=== PATIENT | male | born 1945 | race Caucasian/White ===

== ENCOUNTER 2017-09-05 14:51 | Inpatient (IN) | payer OTHER ==
[~2017-09-05] VITALS: Ht 172.7 cm; Wt 74.0 kg
[2017-09-05 15:04] VITALS: BP 151/88
[2017-09-05] MEDS ORDERED: IPRAT-ALBUT 0.5-3 ML INH (15:20)
[2017-09-05] MEDS ORDERED: ASPIR 8181 MG PO (15:20)
[2017-09-05] MEDS ORDERED: LIPITOR80 MG PO (15:21)
[2017-09-05] MEDS ORDERED: CARVEDILOL12.5 MG PO (15:22)
[2017-09-05] MEDS ORDERED: DM-GUAIF-PE 18240 ML PO (15:23)
[2017-09-05] MEDS ORDERED: LASIX 20 MG TAB20 MG PO (15:24)
[2017-09-05] MEDS ORDERED: FISH OIL 1,001000 M2 PO (15:24)
[2017-09-05 15:26] LABS: ABSOLUTE BASOPHILS 0.1 thou/uL (0.0-0.2); ABSOLUTE EOSINOPHILS 0.3 thou/uL (0.0-0.7); ABSOLUTE LYMPHOCYTES 1.3 thou/uL (0.8-5.3); ABSOLUTE MONOCYTES 0.8 thou/uL (0.0-1.2); ABSOLUTE NEUTROPHILS 5.8 thou/uL (1.6-8.1); BASOPHILS 1.2 %; EOSINOPHILS 3.4 %; HEMATOCRIT 46.2 % (42.0-52.0); HEMOGLOBIN 15.1 gm/dL (14.0-18.0); LYMPHOCYTES 15.7 %; MCH 29.3 pg (26.0-34.0); MCHC 32.7 g/dL (28.0-37.0); MCV 89.6 fL (80.0-100.0); MPV 7.7 fl. (7.2-11.1); NUCLEATED RBCS 0 /100WBC; PLATELET COUNT* 271 thou/uL (150-400); POLYS 69.7 %; RBC 5.16 mil/uL (4.50-6.00); RDW-CV 15.9 % (10.5-14.5); WBC 8.3 thou/uL (4.0-11.0)
[2017-09-05] MEDS ORDERED: NEURONTIN 300300 M1 PO (15:26)
[2017-09-05] MEDS ORDERED: HYDROCODONE-AP1 EAC6 PO (15:29)
[2017-09-05] MEDS ORDERED: LISINOPRIL20 MG PO (15:30)
[2017-09-05 15:31] LABS: ANION GAP 7 mmol/L (7-16); BUN 19 mg/dL (7-18); CALCIUM 8.5 mg/dL (8.5-10.1); CHLORIDE 104 mmol/L (98-107); CO2 30 mmol/L (21-32); CREATININE 0.8 mg/dL (0.6-1.3); GLUCOSE 89 mg/dL (70-99); POTASSIUM 4.3 mmol/L (3.5-5.1); SODIUM 141 mmol/L (136-145)
[2017-09-05] MEDS ORDERED: METFORMIN HCL500 MG PO (15:31)
[2017-09-05 15:32] LABS: PROTIME 9.6 Seconds (9.20-11.50)
[2017-09-05] MEDS ORDERED: REMERON15 MG PO (15:32)
[2017-09-05] MEDS ORDERED: OMEPRAZOLE 20 M20 M1 PO (15:32)
[2017-09-05] MEDS ORDERED: MINIPRESS2 MG PO (15:33)
[2017-09-05] MEDS ORDERED: PREDNISONE 20 M20 MG PO (15:34)
[2017-09-05] MEDS ORDERED: REQUIP 1 MG TABL1 M1 PO ×2 (15:35→19:29)
[2017-09-05] MEDS ORDERED: ZANAFLEX4 MG PO (15:36)
[2017-09-05] MEDS ORDERED: TOPAMAX 100 MG100 MG PO (15:38)
[2017-09-05] MEDS ORDERED: EFFEXOR XR75 MG PO (15:39)
[2017-09-05] MEDS ORDERED: PHENERGAN 25 MG25 M1 PO (15:40)
[2017-09-05] MEDS ORDERED: VITAMIN B-1100 M1 PO (15:41)
[2017-09-05 15:43] LABS: ALBUMIN 3.6 g/dL (3.4-5.0); ALKALINE PHOSPHATASE 97 U/L (46-116); NT-PRO BRAIN NAT PEPTIDE 1486 pg/mL (<300); SGOT 15 U/L (15-37); SGPT 16 U/L (30-65); TOTAL BILIRUBIN 0.3 mg/dL (<0.1-1.0); TOTAL PROTEIN 7.2 g/dL (6.4-8.2); TROPONIN-I LEVEL <0.06 ng/mL (<0.06)
[2017-09-05 15:59] LABS: ACETAMINOPHEN < 2 ug/mL (10-30); ALCOHOL < 10 mg/dL (<10); SALICYLATE 3.8 mg/dL (2.8-20.0)
[2017-09-05 16:25] LABS: URINE BILIRUBIN NEGATIVE (Negative); URINE BLOOD NEGATIVE (Negative); URINE CLARITY CLEAR; URINE COLOR YELLOW; URINE GLUCOSE-RANDOM NEGATIVE (Negative); URINE KETONES TRACE (Negative); URINE LEUKOCYTES-REFLEX NEGATIVE (Negative); URINE NITRITE-REFLEX NEGATIVE (Negative); URINE PROTEIN 1+ (Negative)
[2017-09-05 18:00] VITALS: BP 136/74
[2017-09-05 18:17] LABS: CALCIUM 8.2 mg/dL (8.5-10.1); PHOSPHORUS* 3.6 mg/dL (2.5-4.9)
[2017-09-05 18:18] VITALS: BP 140/96
[2017-09-05] MEDS ORDERED: AUGMENTIN 875-1 EACH PO (19:23)
[2017-09-05] MEDS ORDERED: TRIAD TOP (19:24)
[2017-09-05] MEDS ORDERED: MULTIVITAMINS1 EAC5 PO (19:26)
[2017-09-05] MEDS ORDERED: NARCAN4 MG NASAL (19:27)
[2017-09-05] MEDS ORDERED: FLUORIDEX112 GM PO (19:28)
[2017-09-05] MEDS ORDERED: COMBIVENT INH (19:31)
[2017-09-05 19:39] LABS: AMP/METHAMP Negative (Negative); BARBITURATES Negative (Negative); BENZODIAZEPINES Negative (Negative); COCAINE Negative (Negative); METHADONE Negative (Negative); OPIATES Negative (Negative); PCP Negative (Negative); THC Negative (Negative)
[2017-09-06] VITALS: BP 138/72
[2017-09-06 04:00] VITALS: BP 120/67
[2017-09-06 07:48] VITALS: BP 138/89
[2017-09-06 11:30] VITALS: BP 113/65
--- NOTE | 2017-09-06 14:31 | EKG ---
[place] [address] ELECTROCARDIOGRAM REPORT Name: KELSI FLORES Room: [address] [place] .R.#: [id number] Admission: 09/05/17 Attend Phys: Kel Burleson, Discharge: Date of : 45 Report #: [id number] THIS REPORT FOR: //name// [facility] ED Test Date: 2017-09-05 Test Time: 16:07:30 Pat Name: KELSI FLORES Department: Room: Gender: Social Science Teacher: Eloisa ARRIAGA : 1945 Requested By: Larry Zarate Order Number: [id number] MD: Pantera Li Measurements Intervals [place] Rate: 81 P: -84 DC: 153 QRS: -55 QRSD: 104 T: 67 QT: 415 QTc: 482 Interpretive Statements Ectopic atrial rhythm entricular premature complexes Incomplete RBBB and LAFB Abnormal R-wave progression, late transition Borderline prolonged QT interval No previous ECG available for comparison Electronically Signed On 09-06-2017 14:30:47 CDT by Pantera Li [email or web address] <ELECTRONICALLY SIGNED> By: Pantera Li MD, FACC 09/06/17 1430 [id number] [id number] Pantera Li MD, [facility] /EPI
[2017-09-06 16:00] VITALS: BP 110/70
[2017-09-07] VITALS: BP 114/66
[2017-09-07 04:00] VITALS: BP 110/62
[2017-09-07 05:24] LABS: CALCIUM 7.9 mg/dL (8.5-10.1); CREATININE 0.8 mg/dL (0.6-1.3); MAGNESIUM 1.7 mg/dL (1.8-2.4); PHOSPHORUS* 3.5 mg/dL (2.5-4.9); POTASSIUM 3.8 mmol/L (3.5-5.1)
[2017-09-07 08:00] VITALS: BP 107/62
[2017-09-07 12:27] VITALS: BP 102/60
[2017-09-07] MEDS ORDERED: PREDNISONE 10 M10 MG PO (13:08)
[2017-09-07] MEDS ORDERED: PRENATAL COMPL1 EACH PO (13:21)
[2017-09-07 13:28] VITALS: BP 102/60
--- NOTE | 2017-09-07 14:16 | 2DMMODE ---
[place] [address] 2 D/M-MODE ECHOCARDIOGRAM Name: KELSI FLORES Room: [address] IN [facility]#: [id number] Admission: 09/05/17 Attend Phys: Kel Dyer Discharge: Date of : 45 Date of Service: 09/07/17 1415 Report #: [id number] THIS REPORT FOR: //name// APPROVED REPORT Study performed: 09/07/2017 13:32:19 EXAM: Comprehensive 2D, Doppler, and color-flow Echocardiogram Patient Location: In-Patient Room #: 204 BSA: 1.82 HR: 67 bpm BP: 110/62 mmHg Other Information Study Quality: Good Indications Congestive Heart Failure 2D Dimensions LVEF(%): 62.49 (>50%) IVSd: 11.97 (7-11mm) LVOT Diam: 20.90 (18-24mm) LVDd: 44.73 mm PWd: 11.76 (7-11mm) Ascending Ao: 34.79 (22-36mm) LVDs: 29.71 (25-40mm) Aortic Root: 26.05 mm Ovalle's LVEF: 62.49 % Volumes Left Atrial Volume (Systole) LA ESV Index: 39.20 mL/m2 Aortic Valve AoV Peak Saturnino.: 1.34 m/s AO Peak Gr.: 7.23 mmHg LVOT Max P.23 mmHg AO Mean Gr.: 3.48 mmHg LVOT Mean P.84 mmHg LVOT Max V: 1.03 m/s AO V2 VTI: 23.13 cm LVOT Mean V: 0.62 m/s JAMESON (VTI): 2.82 cm2 LVOT V1 VTI: 18.98 cm Mitral Valve E/A Ratio: 1.50 MV Decel. Time: 219.63 [place] [address] 2 D/M-MODE ECHOCARDIOGRAM Name: KELSI FLORES Room: [address] [place] .R.#: [id number] Admission: 09/05/17 Attend Phys: Kel Dyer Discharge: Date of : 45 Date of Service: 09/07/17 1415 Report #: [id number] MV E Max Saturnino.: 0.78 m/s MV PHT: 63.69 ms MVA (PHT): 3.45 cm2 TDI E/Lateral E': 7.80 E/Medial E': 13.00 Medial E' Saturnino.: 0.06 m/s Lateral E' Saturnino.: 0.10 m/s Pulmonary Valve PV Peak Saturnino.: 0.87 m/s PV Peak Gr.: 3.01 mmHg Tricuspid Valve TR Peak Gr.: 22.72 mmHg RVSP: 27.72 mmHg Left Ventricle The left ventricle is normal size. There is normal LV segmental wall motion. Mild concentric left ventricular hypertrophy. Left ventricular systolic function is normal. The left ventricular ejection fraction is within the normal range. LVEF is 55-60%. The left ventricular diastolic function is normal. Right Ventricle The right ventricle is normal size. The right ventricular systolic function is normal. Atria Left atrium is mildly dilated. The right atrium size is normal. Aortic Valve The aortic valve is normal in structure. Trace aortic regurgitation. There is no aortic valvular stenosis. Mitral Valve The mitral valve is normal in structure. Mild mitral regurgitation. No evidence of mitral valve stenosis. Tricuspid Valve The tricuspid valve is normal in structure. moderate tricuspid regurgitation estimated pa pressure 30 mm Hg Pulmonic Valve Pulmonic valve is not well visualized. There is no pulmonic [place] [address] 2 D/M-MODE ECHOCARDIOGRAM Name: KELSI FLORES Room: [address]#: [id number] Admission: 09/05/17 Attend Phys: Kel Dyer Discharge: Date of : 45 Date of Service: 09/07/17 1415 Report #: [id number] Great Vessels The aortic root is normal in size. IVC is normal in size and collapses with >50% inspiration Pericardium There is no pericardial effusion. <Conclusion> Mild concentric left ventricular hypertrophy. LVEF is 55-60%. Left atrium is mildly dilated. Mild mitral regurgitation. moderate tricuspid regurgitation estimated pa pressure 30 mm Hg <ELECTRONICALLY SIGNED> By: Dev Doan MD, FACC 09/07/17 1415 141 1415 Dev Doan MD, FACC /INF
== END 2017-09-07 15:30 | disposition home or self-care (01) | DRG 896 ==
LOC: M.ERS 14:51 → M.2W 16:32 → M.TBA-ER 16:32 → M.2W 18:12
PROVIDERS: Family Medicine; ADMIT Family Medicine
DX: F10.229 Alcohol dependence with intoxication, unspecified (principal); G93.41 Metabolic encephalopathy; I50.32 Chronic diastolic (congestive) heart failure; J96.10 Chronic respiratory failure, unspecified whether with hypoxia or hypercapnia; R53.1 Weakness; J44.9 Chronic obstructive pulmonary disease, unspecified; I50.9 Heart failure, unspecified; G25.81 Restless legs syndrome; F17.210 Nicotine dependence, cigarettes, uncomplicated; E78.5 Hyperlipidemia, unspecified; I11.0 Hypertensive heart disease with heart failure; G31.9 Degenerative disease of nervous system, unspecified; Y90.9 Presence of alcohol in blood, level not specified; Z79.899 Other long term (current) drug therapy; Z79.82 Long term (current) use of aspirin; Z79.84 Long term (current) use of oral hypoglycemic drugs; Z88.8 Allergy status to other drugs, medicaments and biological substances; Z88.1 Allergy status to other antibiotic agents; Z88.2 Allergy status to sulfonamides